=== PATIENT | female | born 1985 | race Caucasian/White ===

== ENCOUNTER 2018-11-23 15:56 | Emergency (ER) | payer OTHER ==
--- NOTE | 2018-11-23 16:49 | ED ---
Laceration/Wound HPI - HPI Summary HPI Summary: This pt is a 33 Y/O F [place] [facility] on her 4th finger with a pair of scissors. She states that the pain is a 7/10 in severity and it happened [employer]. She has full ROM of her hand and finger. She denies any fever, N/V , SOB, CP, headaches, and chills. She states that there is increased pain when she moves her hand. She denies any alleviation. She has no pertinent PMHx and denies any use of anticoagulants. She states that her last tetanus shot was in September. - History of Current Complaint Stated Complaint: LT 4TH FINGER LAC PER PT Time Seen by Provider: 11/23/18 16:28 Hx Obtained From: Patient Mechanism of Injury: Other - cut her hand with scissors Onset/Duration: Sudden Onset Aggravating: Movement Alleviating: Nothing Timing: Constant Onset Severity: Severe Current Severity: Severe Pain Intensity: 7 Pain Scale Used: 0-10 Numeric Associated Signs & Symptoms: Negative - fever, N/V, SOB, CP, headaches, and chills, Pain - Allergy/Home Medications Allergies/Adverse Reactions: Allergies Allergy/AdvReac Type Severity Reaction Status Date / Time No Known Allergies Allergy Verified 11/23/18 16:01 Home Medications: Home Medications NK [No Home Medications Reported] 11/23/18 [History Confirmed 11/23/18] PMH/Surg Hx/FS Hx/Imm Hx Previously Healthy: Yes Endocrine/Hematology History: Denies: Hx Diabetes Cardiovascular History: Denies: Hx Hypertension Respiratory History: Denies: Hx Asthma Sensory History: Reports: Hx Contacts or Glasses Opthamlomology History: Reports: Hx Contacts or Glasses - Surgical History Surgical History: None Infectious Disease History: No Infectious Disease History: Denies: Traveled Outside the [place] in Last 30 Days - Family History Known Family History: Negative: Cardiac Disease, Hypertension, Diabetes - Social History Occupation: Employed Full-time, Works From/At Home Lives: Alone Alcohol Use: Occasionally Hx Substance Use: No Substance Use Type: Reports: None Hx Tobacco Use: No Smoking Status (MU): Never Smoked Tobacco Household Exposure: No Review of Systems Negative: Fever, Chills Negative: Chest Pain Negative: Shortness Of Breath Negative: Vomiting, Nausea Musculoskeletal: Other - L hand laceration Negative: Decreased ROM Negative: Headache All Other Systems Reviewed And Are Negative: Yes Physical Exam - Summary Physical Exam Summary: VITAL SIGNS: Reviewed. GENERAL: Patient is a well-developed and nourished female who is lying comfortable in the stretcher. Patient is not in any acute respiratory distress. HEAD AND FACE: No signs of trauma. No ecchymosis, hematomas or skull depressions. No sinus tenderness. EYES: PERRLA, EOMI x 2, No injected conjunctiva, no nystagmus. EARS: Hearing grossly intact. Ear canals and tympanic membranes are within normal limits. MOUTH: Oropharynx within normal limits. NECK: Supple, trachea is midline, no adenopathy, no JVD, no carotid bruit, no c- spine tenderness, neck with full ROM CHEST: Symmetric, no tenderness at palpation LUNGS: Clear to auscultation bilaterally. No wheezing or crackles. CVS: Regular rate and rhythm, S1 and S2 present, no murmurs or gallops appreciated. ABDOMEN: Soft, non-tender. No signs of distention. No rebound no guarding, and no masses palpated. Bowel sounds are normal. EXTREMITIES: FROM in all major joints, no edema, no cyanosis or clubbing. 1 cm laceration to the left 4th finger. NEURO: Alert and oriented x 3. No acute neurological deficits. Speech is normal and follows commands. SKIN: Dry and warm Triage Information Reviewed: Yes Vital Signs On Initial Exam: Initial Vitals Temp Pulse Resp BP Pulse Ox 97.9 F 81 16 126/71 99 11/23/18 15:59 11/23/18 15:59 11/23/18 15:59 11/23/18 15:59 11/23/18 15:59 Vital Signs Reviewed: Yes Procedures - Sedation Patient Received Moderate/Deep Sedation with Procedure: No - Laceration/Wound Repair 1 Location: upper extremity - Left 4th finger Description: Linear Anesthesia: 1.0%, Lido Suture Type: Nylon Number of Sutures: 3 Layer Closure?: Yes Sterile Dressing Applied?: Yes Diagnostics - Vital Signs Vital Signs Temp Pulse Resp BP Pulse Ox 11/23/18 15:59 97.9 F 81 16 126/71 99 - Laboratory Lab Statement: Any lab studies that have been ordered have been reviewed, and results considered in the medical decision making process. Laceration Repair Course/Dx - Course Assessment/Plan: Patient is a 33-year-old female who presents to the emergency department with a chief complaint of a laceration in the left fourth finger. Laceration is approximately 1 cm. He was irrigated with normal saline and iodine. Laceration was repaired. No complications. Patient is up-to-date on vaccinations. Patient will be discharged home with follow-up with PCP. Patient will return to the emergency department with a primary care physician 7- 10 days for removal of sutures. - Clinical Impression Provider Diagnoses: Finger laceration Discharge ED - Sign-Out/Discharge Documenting (check all that apply): Patient Departure - discharge - Discharge Plan Condition: Stable Disposition: HOME Patient Education Materials: Care For Your Stitches (ED), Laceration (ED), Stitches Removal (ED) Referrals: [facility] [Outside] - 7 Days Additional Instructions: PLEASE RETURN TO THE EMERGENCY DEPARTMENT FOR ANY NEW OR WORSENING SYMPTOMS. FOLLOW UP WITH THE [facility] IN 7-10 DAYS TO HAVE YOUR STITCHES REMOVED OR RETURN TO THE EMERGENCY DEPARTMENT. - Billing Disposition and Condition Condition: STABLE Disposition: Home - Attestation Statements Document Initiated by [place]: Yes Documenting Scribe: Stuart Delaney Provider For Whom Selenae is Documenting (Include Credential): Vinicius Webster MD Scribe Attestation: Stuart Ware, scribed for Vinicius Webster MD on 11/23/18 at 1840. Scribe Documentation Reviewed: Yes Provider Attestation: The documentation as recorded by the Stuart silva accurately reflects the service I personally performed and the decisions made by , Vinicius Webster MD Status of Scribe Document: Viewed
[2018-11-23 17:05] VITALS: BP 126/77
== END 2018-11-23 17:03 | disposition home or self-care (01) ==
LOC: ED 15:56
DX: S61.215A Laceration without foreign body of left ring finger without damage to nail, initial encounter (principal); W27.2XXA Contact with scissors, initial encounter; Y92.9 Unspecified place or not applicable
CPT/HCPCS: 12001; 99281